=== PATIENT | male | born 1995 | race Asian ===

== ENCOUNTER 2017-10-11 18:00 | Emergency (ER) | payer OTHER ==
[~2017-10-11] VITALS: Ht 180.3 cm; Wt 81.1 kg
[2017-10-11 18:06] VITALS: TEMP 36.4; Ht 180.3 cm; Wt 81.1 kg
[2017-10-11] MEDS ORDERED: PROPARACAINE HCL 0.5% OP SOLN 15 ML BTL OP STA (18:11)
[2017-10-11] MEDS ORDERED: CIPROFLOXACIN HCL 0.3% OP SOLN 2.5 ML BTL OP STA (18:49)
[2017-10-11] MEDS ORDERED: BUDE1SUS8 NAE (19:00)
[2017-10-11] MEDS ORDERED: QVRINH80 INH (19:00)
[2017-10-11 19:05] VITALS: BP 114/67; PULSE 73; O2SAT 98
--- NOTE | 2017-10-11 20:23 | EMERGENCY ROOM VISIT NOTE ---
History First contact with patient: 18:11 Chief Complaint: EYE ASSESSMENT Stated Complaint: EYE RED History of Present Illness The patient is a 22 year old male who presents to the Emergency Room with complaints of right eye discomfort, photophobia and tearing. The patient reports that he slept with his contact lenses in on Tuesday night. When the patient took his contact lenses out the following morning, he had significant discomfort of the eye. He tried to put his contacts back in his eyes again today with significant discomfort before removing his right contact lens. He still has his left contact lens in place. The patient reports that he does not have glasses available, but his father issue bringing him another pair of glasses from home in [place]. The patient rates his discomfort a 1 out of 10. Review of Systems 10 system review was performed and was negative except for pertinent positives and negatives as indicated in history of present illness Past Medical/Surgical History Medical Problems: (1) No significant past medical history Surgical Problems: (1) No history of previous surgery Family History Unremarkable Social History Smoking Status: Never Smoker Alcohol Use: occasionally Marital Status: single Occupation Status: [employer] student Current/Historical Medications Scheduled PRN Beclomethasone Dip (Qvar), 2 PUFFS INH DIRECTED PRN for ASTHMA RELATED SYMPTOMS Budesonide (Nasal) (Rhinocort Allergy), 2 SPRAYS MERVAT DAILY PRN for CONGESTION Physical Exam Vital Signs Date Time Temp Pulse Resp B/P (MAP) Pulse Ox O2 Delivery O2 Flow Rate FiO2 18 19:05 73 18 114/67 98 218 18:06 36.4 73 18 114/67 98 Room Air Right Eye Acuity: 20/200 W/O CORRECTIVE LENSES Left Eye Acuity: 20/40 W/CORRECTIVE LENSES Physical Exam CONSTITUTIONAL: Healthy and well nourished. Alert and oriented X 3 with positive affect. Patient appears in moderate discomfort from photophobia. HEENT: Normocephalic, atraumatic. Pupils equal, round and reactive. Right conjunctiva is injected without mucopurulent drainage. Ears and nares are clear. OROPHARYNX: No posterior pharyngeal erythema, postnasal drip or tonsillar hypertrophy/exudates. NECK: Full active range of motion without discomfort. RESPIRATORY: Clear to auscultation bilaterally with no wheezing, crackles, rhonchi or stridor. CARDIOVASCULAR: Regular rate and rhythm with no murmurs, rubs or gallops. INTEGUMENTARY: No rash or other significant dermatologic conditions noted. NEUROLOGIC: Cranial nerves II-XII grossly intact. No focal neurologic deficits noted. Medical Decision & Procedures Medications Administered Medications (Trade) Dose Ordered Sig/Allison Route Start Time Stop Time Status Last Admin Dose Admin Ciprofloxacin HCl (Ciprofloxacin 0.3% Op Soln) 2 drops NOW STAT OP 10/11/17 18:49 10/11/17 18:50 DC 10/11/17 19:05 2 DROPS Procedure Slit lamp and fluorescein exam were performed. 2 drops of Alcaine were instilled into the right eye. Examination of the right eye was difficult because of photophobia. Negative cell and flare. Negative hyphema. No mucopurulent drainage noted. Fluorescein exam shows a small abrasion near the central axis of vision. A few other areas of punctate uptake are noted. ED Course Patient history and physical exam were performed. Nurse's notes were reviewed. Vital signs were reviewed and were normal. Slit lamp and fluorescein exam shows evidence for a corneal abrasion and a few areas of punctate uptake of fluorescein dye. The patient was dispensed Ciloxan 0.3% ophthalmic solution. He was encouraged to intermittently apply cool compresses to the eye. Ibuprofen and Tylenol in alternating fashion for additional pain relief as needed. The patient reports that his father has sent his glasses in the mail. He was instructed to refrain from contact lens use for the next 2 weeks. He was provided contact information for ophthalmology should his symptoms not significant improve within the next 36-48 hours. He is also welcome to return to the emergency department for any progressively worsening symptoms. The patient was happy with plan of care, and voiced understanding of all discharge instructions. Medical Decision Medication Reconcilliation Current Medication List: was personally reviewed by tn Blood Pressure Screening Patient's blood pressure: Normal blood pressure Impression Primary Impression: Right corneal abrasion Departure Information Dispostion Home / Self-Care Condition GOOD Referrals Masood Sierra M.D. Forms HOME CARE DOCUMENTATION FORM, IMPORTANT VISIT INFORMATION Patient Instructions My [facility] Eye Injury Corneal Abrasion Additional Instructions Administer ciprofloxacin 2 antibiotic eyedrops every 4-6 hrs (while awake) for 7 days. Ibuprofen 800 mg and/or Tylenol 1000 mg every 8 hours. You may also alternate these medications for more effective pain relief: Ibuprofen --4 HRS--> Tylenol --4 HRS--> ibuprofen --4 HRS--> Tylenol .... You may also intermittently apply a cool compress and wear sunglasses for additional relief. No contact lens use for 14 days. Follow-up with an videotape recording engineer (Dr. Sierra) if no improvement within 36- 48 hrs. FOR SCHOOL: Please excuse from classes until Tuesday10/14/17 (may return on Tuesday). Problem Qualifiers Primary Impression: Right corneal abrasion Encounter type: initial encounter Qualified Codes: S05.01XA - Injury of conjunctiva and corneal abrasion without foreign body, right eye, initial encounter
== END 2017-10-11 19:05 | disposition home or self-care (01) ==
LOC: C.EDB 18:03 → C.EDD 19:05
DX: S05.01XA Injury of conjunctiva and corneal abrasion without foreign body, right eye, initial encounter (principal); X58.XXXA Exposure to other specified factors, initial encounter